=== PATIENT | male | born 1980 | race Caucasian/White ===

== ENCOUNTER 2023-08-13 13:15 | Outpatient (CLI) | payer OTHER, SELFPAY | END 2023-08-13 13:16 | disposition home or self-care (01) | PROVIDERS: PCP Family Medicine; Visit Provider Family Medicine | DX: I10 Essential (primary) hypertension (principal); Z13.220 Encounter for screening for lipoid disorders; Z11.59 Encounter for screening for other viral diseases | CPT/HCPCS: 80053; 80061; 82043; 82570; 86803 ==

== ENCOUNTER 2024-01-02 10:03 | Outpatient (CLI) | payer OTHER, SELFPAY ==
--- NOTE | 2024-01-02 10:15 | MR_ITS ---
[address] [address] Phone:?[phone] Fax:?[phone] Referring Physician Information: Quinn Kenyon M.D. [id number] [facility] [address] Phone:?[phone] Fax:?[phone] Patient:Isaias Ford D.O.B:?1980 Sex:?Male Phone:?[phone] [facility] MRN:?[id number] Exam Date:?01/02/2024 EXAM: MRI of the RIGHT SHOULDER, without contrast CLINICAL: Evaluate for rotator cuff tear. COMPARISONS: X-rays dated 12/27/2023. TECHNICAL: Multiplanar multisequence MRI of the right shoulder was obtained. SEDATION: None. CONTRAST: None. FINDINGS: Rotator cuff: Supraspinatus/Infraspinatus: There is mild partial interstitial tearing of the distal supraspinatus tendon on coronal series 5 image 13. Mild partial articular surface tearing of the junction of the posterior supraspinatus and anterior infraspinatus tendons on coronal series 5 image 16-17. No significant fatty atrophy of the muscle bellies. Teres minor: No tendinosis, tear or atrophy. Subscapularis: No tendinosis, tear or atrophy. Bursae: Subacromial-subdeltoid: No significant bursal fluid. Subcoracoid: No significant bursal fluid. Coracoacromial arch: Acromion morphology: Type II. No os acromiale. Acromiohumeral space: Within normal limits. Coracohumeral space: Within normal limits. Biceps tendon, long head: Intraarticular and extraarticular segments intact without rupture, tendinopathy or displacement. Glenohumeral joint: Physiologic volume of joint fluid. Articular cartilage: No significant chondral loss. Capsule: There is apparent thickening of the inferior glenohumeral ligament. No capsular disruption. Labrum: There is focal tearing of the posterior labrum on axial series 4 image 15. No additional discrete labral tear identified on this nonarthrogram exam. No perilabral cyst identified. Bones: No suspicious marrow signal alteration, fracture or dislocation. Acromioclavicular joint: No acute injury, arthropathy, or inferior hypertrophy. IMPRESSION: 1. Mild partial tearing of the distal supraspinatus tendon and involving the junction of the posterior supraspinatus and anterior infraspinatus tendons. No high-grade partial or full-thickness rotator cuff tendon tear. 2. Focal tearing of the posterior labrum. 3. Apparent thickening of the inferior glenohumeral ligament which may reflect capsular redundancy but also can be seen in patients with adhesive capsulitis, recommend close clinical correlation. JCZ Electronically signed on 01/03/2024 8:45:00 AM by Tal Mckeon D.O.
== END 2024-01-02 10:04 | disposition home or self-care (01) ==
PROVIDERS: PCP Family Medicine; Visit Provider Orthopaedic Surgery Sports Medicine
DX: S46.011D Strain of muscle(s) and tendon(s) of the rotator cuff of right shoulder, subsequent encounter (principal); M75.101 Unspecified rotator cuff tear or rupture of right shoulder, not specified as traumatic; S43.401A Unspecified sprain of right shoulder joint, initial encounter; M75.01 Adhesive capsulitis of right shoulder
CPT/HCPCS: 73221

== ENCOUNTER 2024-10-20 10:31 | Outpatient (CLI) | payer BC, SELFPAY | END 2024-10-20 10:32 | disposition home or self-care (01) | PROVIDERS: PCP Family Medicine; Visit Provider Family Medicine | DX: I10 Essential (primary) hypertension (principal); Z13.6 Encounter for screening for cardiovascular disorders; Z13.1 Encounter for screening for diabetes mellitus | CPT/HCPCS: 80053; 80061; 82043; 82570 ==

== ENCOUNTER 2025-03-23 13:42 | Outpatient (CLI) | payer BC, SELFPAY | END 2025-03-23 13:43 | disposition home or self-care (01) | PROVIDERS: PCP Family Medicine; Visit Provider Internal Medicine | DX: I48.91 Unspecified atrial fibrillation (principal); I07.1 Rheumatic tricuspid insufficiency | CPT/HCPCS: 93306 ==